=== PATIENT | male | born 1960 | race Hispanic/Latino ===

== ENCOUNTER 2016-10-10 00:34 | Emergency (ER) | payer SELFPAY ==
[2016-10-10 00:34] VITALS: BMI 28.7
[2016-10-10 00:54] VITALS: RESP 18
--- NOTE | 2016-10-10 02:49 | C.PDOC ---
History Of Present Illness 55 yo male BIBA due to head injury sustained [employer]. As per EMS, pt was found sitting outside, (+) alcohol intoxication. Pt admits, "tripped and fell, face first". Pt denies hx of alcohol abuse, " was occasion today. Pt reports pain over the face at present time. Otherwise, pt denies LOC, syncope, denies worse headache of life, neck pain, CP, SOB, dyspnea, papitation, abd. pain, V/D, back pain, denies pain/deformity/weakness toB/L UEs and LEs. At the time of evaluation, pt is AAO#3, appears in acute alcohol intoxication. - HPI Time Seen by Provider: 10/10/16 01:40 Chief Complaint (Nursing): Trauma History Per: Patient, EMS Past Medical History Reviewed: Historical Data, Nursing Documentation, Vital Signs Vital Signs: Last Vital Signs Temp 98.0 F 10/10/16 05:57 Pulse 68 10/10/16 05:57 Resp 18 10/10/16 05:57 BP 165/83 H 10/10/16 05:57 Pulse Ox 96 10/10/16 06:14 - Medical History PMH: HTN Family History: States: No Known Family Hx - Social History Hx Alcohol Use: Yes ("WEEKENDS") Hx Substance Use: No - Immunization History Hx Tetanus Toxoid Vaccination: Yes (2011) Hx Influenza Vaccination: No Hx Pneumococcal Vaccination: No Review Of Systems Except As Marked, All Systems Reviewed And Found Negative. Eyes: Negative for: Vision Change ENT: Positive for: Mouth Pain, Other (facial contusion) Cardiovascular: Negative for: Chest Pain, Palpitations, Light Headedness Respiratory: Negative for: Cough, Shortness of Breath, Wheezing Gastrointestinal: Negative for: Nausea, Vomiting, Abdominal Pain Genitourinary: Negative for: Dysuria, Frequency Musculoskeletal: Negative for: Neck Pain, Back Pain Skin: Positive for: Bruising, Other (abrasions) Neurological: Negative for: Weakness, Numbness, Altered Mental Status, Headache Physical Exam - Physical Exam Appears: Well, Non-toxic Skin: Normal Color, Warm, Dry Head: Normacephalic, Other (multiple forehead abrasion. NO defomrity. NO open wounds.) Eye(s): bilateral: Normal Inspection, PERRL (slugush reactive to light B/L), EOMI Nose: No Epistaxis, No Deformity, Tenderness (and trace ecchymoses, superficial abrasion over nasal bridge.), No Septal Hematoma Oral Mucosa: Moist, No Drooling Tongue: Normal Appearing, No Swelling, No Laceration Lips: Normal Appearing, No Swelling, No Laceration Throat: Normal, No Erythema, No Exudate, No Drooling Neck: Normal, Normal ROM, No Midline Cervical Tenderness, No Paracervical Tenderness, No Step Off Deformity, Supple Cardiovascular: Rhythm Regular Respiratory: Normal Breath Sounds Gastrointestinal/Abdominal: Normal Exam, Soft, No Tenderness, No Rebound Back: Normal Inspection Extremity: Normal ROM (FAROM of B/L UEs and LEs.), No Deformity, Other ( multiple abrasions noted B/L hands dorsal asepct) Neurological/Psych: Oriented x3, Normal Motor, Normal Sensation, Normal Reflexes ED Course And Treatment O2 Sat by Pulse Oximetry: 96 Pulse Ox Interpretation: Normal - CT Scan/US CT head Other Rad Studies (CT/US): Radiology Report Reviewed CT/US Interpretation: IMPRESSION: 1. No intracranial hemorrhage. 2. See facial bone CT report for additional details. 3. Incidental/non-acute findings are described above. Thank you for allowing us to participate in the care of your patient. Dictated and Authenticated by: Hay Chaidez MD. 10/10/2016 3: 40 AM Eastern Time ([place] & [place]) CT max/face Other Rad Studies (CT/US): Radiology Report Reviewed CT/US Interpretation: FINDINGS: Bones/joints: Chronic deformity medial wall of LEFT orbit. No acute fracture. Soft tissues: Nasal soft tissue swelling. Orbits: Unremarkable as visualized. Sinuses: Scattered mild mucosal thickening. No air-fluid levels. IMPRESSION: 1. No fracture. 2. Incidental/ non-acute findings are described above. Thank you for allowing us to participate in the care of your patient. Dictated and Authenticated by: Hay Chaidez MD. 10/10/2016 3:42 AM Eastern Time ([place] & [place]) CT C-spine Other Rad Studies (CT/US): Radiology Report Reviewed CT/US Interpretation: 1. No fracture within visualized cervical spine. 2. Incidental/non-acute findings are described above. Addendum created by Hay Chaidez MD on 10/10/2016 4:31 AM Eastern Time ([place] & [place]). Vertebrae: No acute fracture. Straightening of cervical spine. Few tiny lucent lesions within C3. vertebral body, nonspecific. Initial Report created on 10/10/2016 3:47 AM Eastern Time ([place] & [place]) Progress Note: FSBS 135 ED OBSERVATION Discharge: Yes Date of observation admission: 10/10/16 Time of observation admission: 02:53 - Observation admission statement Patient is being placed in observation because:: Head injury, facial contusion, alcohol intoxication - Goals of Observation Goals of observation are:: Diagnostics, imaging, sobriety. - Progress Note Progress Note: 10/10/16 AT 3:55, PT RESTING COMFORTABLY IN BED, NOT IN ANY APPARENT DISTRESS. AFEBRILE, HEMODYNAMICALY STABLE. NON-TOXIC. NEUROLOGICALLY INTACT. AT 04:41, NOTED PT IS AMBULATORY IN ED TO BATHROOM. AFEBRILE, HEMODYNAMICALY STABLE. AAO#3, not in any apparent distress. NEUROLOGICALLY INTACT. AT 06:14, PT IS AAO#3, AMBULATORY IN ED WITH STABLE GAIT, TOLERATE PO WLEL IN ED. NEUROLOGICALY INTACT. IMAGING RESULTS REVIEW AND DISCUSSED WITH PT. PT HAS CLINICAL FINDINGS C/W HEAD INJURY, FACIAL CONTUSION, ALCOHOL INTOXICATION. PT ADVISED OBS 48 HRS FOR ANY SIGN OF HEAD INJURY-RETURN TO ED IF ANY NEW CHANGES. PT ADVISED ON WOUND CARE. REF. TO F/U WITH PMD IN 2-3 DAYS FOR RE-EVAL. PT IS WISHING TO BE DISCHARGE NOW , STABLE FOR DISCHARGE. Disposition Counseled Patient/Family Regarding: Studies Performed, Diagnosis, Need For Followup - Disposition Referrals: Alcoholics Anonymous [Outside] [facility] [Outside] Disposition: HOME/ ROUTINE Disposition Time: 06:20 Condition: STABLE Additional Instructions: OBSERVE 48 HOURS FOR ANY SIGN OF HEAD INJURY-INTRACTABLE HEADACHE, VOMITING, LETHARGY OR ANY OTHER NEW CHANGES-RETURN TO ED IMMEDIATELY FOR RE-EVALUATION. ANTIBIOTIC CREAM TOPICALLY TO FACIAL ABRASION FOLLOW UP WITH PMD IN 2 DAYS FOR RE-EVALUATION. Instructions: Head Injury (ED), Alcohol Intoxication (ED), Abrasion (ED), Facial Contusion (ED) - Clinical Impression Clinical Impression: Head injury, Facial contusion, Alcohol intoxication
--- NOTE | 2016-10-10 03:40 | CT ---
EXAM: CT Head Without Intravenous Contrast. CLINICAL HISTORY: 55 years old, male; Pain and injury or trauma; Fall; Initial encounter; Blunt trauma (contusions or hematomas); Headache TECHNIQUE: Axial computed tomography images of the head/brain without intravenous contrast. This CT exam was performed using one or more of the following dose reduction techniques: automated exposure control, adjustment of the mA and/or kV according to patient size, and/or use of iterative reconstruction technique. Coronal and sagittal reformatted images were created and reviewed. COMPARISON: No relevant prior studies available. FINDINGS: Brain: No intracranial hemorrhage. No mass. Dilated perivascular space vs chronic lacunar infarct about LEFT basal ganglia. No edema. Ventricles: No hydrocephalus. Bones/joints: No calvarial fracture. Soft tissues: Unremarkable. Mastoid air cells: No mastoid effusion. IMPRESSION: 1. No intracranial hemorrhage. 2. See facial bone CT report for additional details. 3. Incidental/non-acute findings are described above.
--- NOTE | 2016-10-10 03:43 | CT ---
EXAM: CT Maxillofacial Without Intravenous Contrast. CLINICAL HISTORY: 55 years old, male; Pain and injury or trauma; Fall; Initial encounter; Blunt trauma (contusions or hematomas); Head/scalp and forehead and nose and maxilla; Loss of consciousness not known; Eye pain and face pain and headache and maxilla pain and nose pain; Bilateral TECHNIQUE: Axial computed tomography images of the face without intravenous contrast. This CT exam was performed using one or more of the following dose reduction techniques: automated exposure control, adjustment of the mA and/or kV according to patient size, and/or use of iterative reconstruction technique. Coronal and sagittal reformatted images were created and reviewed. COMPARISON: No relevant prior studies available. FINDINGS: Bones/joints: Chronic deformity medial wall of LEFT orbit. No acute fracture. Soft tissues: Nasal soft tissue swelling. Orbits: Unremarkable as visualized. Sinuses: Scattered mild mucosal thickening. No air-fluid levels. IMPRESSION: 1. No fracture. 2. Incidental/non-acute findings are described above.
--- NOTE | 2016-10-10 03:47 | CT ---
EXAM: CT Cervical Spine Without Intravenous Contrast. CLINICAL HISTORY: 55 years old, male; Pain and injury or trauma; Fall; Initial encounter; Blunt trauma; Neck pain TECHNIQUE: Axial computed tomography images of the cervical spine without intravenous contrast. This CT exam was performed using one or more of the following dose reduction techniques: automated exposure control, adjustment of the mA and/or kV according to patient size, and/or use of iterative reconstruction technique. Coronal and sagittal reformatted images were created and reviewed. COMPARISON: No relevant prior studies available. FINDINGS: Limitations: Incomplete imaging of C6, C7 spinous processes. Vertebrae: No acute fracture. Straightening of cervical spine. Discs/spinal canal/neural foramina: Mild degenerative disc disease within mid cervical spine. Moderate degenerative disc disease within lower cervical spine. Disc herniations within lower cervical spine, suboptimally evaluated. Moderate indentation thecal sac/cord lower cervical spine. Neural foraminal narrowing within lower cervical spine. Soft tissues: Unremarkable. Lung apices: Minimal bullous changes. IMPRESSION: 1. No fracture within visualized cervical spine. 2. Incidental/non-acute findings are described above.
[2016-10-10 05:58] VITALS: BP 165/83; PULSE 68; TEMP 98
[2016-10-10 06:14] VITALS: O2SAT 96
== END 2016-10-10 06:20 | disposition home or self-care (01) ==
LOC: C.ER 00:34
DX: S00.83XA Contusion of other part of head, initial encounter (principal); W01.0XXA Fall on same level from slipping, tripping and stumbling without subsequent striking against object, initial encounter; Y93.9 Activity, unspecified; Y92.410 Unspecified street and highway as the place of occurrence of the external cause; F10.120 Alcohol abuse with intoxication, uncomplicated; Y90.9 Presence of alcohol in blood, level not specified

== ENCOUNTER → 2016-11-19 19:09 | Emergency (ER) | payer SELFPAY ==
[2016-11-19 19:10] VITALS: BMI 28.7
== END | disposition left against medical advice (07) ==
LOC: C.ER 19:09
DX: F19.10 Other psychoactive substance abuse, uncomplicated (principal); Z02.9 Encounter for administrative examinations, unspecified

== ENCOUNTER 2017-03-04 18:29 | Observation (INO) | payer SELFPAY ==
[2017-03-04 18:30] VITALS: BMI 28.7
--- NOTE | 2017-03-04 19:47 | C.PDOC ---
History Of Present Illness Patient presents to the ED for evaluation of acute alcohol intoxication for an unknown duration. Patient admits to drinking earlier today. He denies suicidal/ homicidal ideation and has no physical complaints at this time. Time Seen by Provider: 03/04/17 19:46 Chief Complaint (Nursing): Substance Abuse History Per: Patient History/Exam Limitations: intoxication Onset/Duration Of Symptoms: Unknown Current Symptoms Are (Timing): Still Present Suicide/Self Injury Attempted (Context): None Modifying Factor(s): Alcohol Severity: Mild Pain Scale Rating Of: 3 Associated Symptoms: denies: Suicidal Thoughts, Suicidal Plan Involuntary Hold By: None Recent travel outside of the [place]: No Additional History Per: Patient Past Medical History Reviewed: Historical Data, Nursing Documentation, Vital Signs Vital Signs: Last Vital Signs Temp 97 F L 03/04/17 23:00 Pulse 90 03/04/17 23:00 Resp 14 03/04/17 23:00 BP 110/70 03/04/17 23:00 Pulse Ox 95 03/05/17 02:48 - Medical History PMH: HTN Surgical History: No Surg Hx Family History: States: Unknown Family Hx - Social History Hx Alcohol Use: Yes Hx Substance Use: No - Immunization History Hx Tetanus Toxoid Vaccination: Yes (2011) Hx Influenza Vaccination: No Hx Pneumococcal Vaccination: No Review Of Systems Constitutional: Positive for: Other (+ETOH intoxication ) Cardiovascular: Negative for: Chest Pain, Palpitations Respiratory: Negative for: Cough, Shortness of Breath Gastrointestinal: Negative for: Nausea, Vomiting, Abdominal Pain Skin: Negative for: Rash, Lesions, Jaundice, Bruising Psych: Negative for: Suicidal ideation Physical Exam - Physical Exam Appears: No Acute Distress, Other (+visibly intoxicated ) Skin: Warm, Dry Head: Normacephalic Eye(s): bilateral: Normal Inspection Oral Mucosa: Moist, Other (alcohol on breath ) Neck: Supple Chest: Symmetrical, No Deformity, No Tenderness Cardiovascular: Rhythm Regular, No Murmur Respiratory: No Rales, No Rhonchi, No Wheezing Extremity: Capillary Refill (less than 2 seconds ) Neurological/Psych: Other (arousable to touch and verbal stimuli ) Gait: Unsteady ED Course And Treatment O2 Sat by Pulse Oximetry: 95 (on RA) Pulse Ox Interpretation: Normal Progress Note: Patient placed in ED observation for acute alcohol intoxication and is pending sobriety. Reevaluation Time: 04:34 Reassessment Condition: Improved ED OBSERVATION Discharge: Yes Date of observation admission: 03/04/17 Time of observation admission: 19:49 - Observation admission statement Patient is being placed in observation because:: acute alcohol intoxication - Goals of Observation Goals of observation are:: sobriety - Progress Note Progress Note: 03/04/17 19:49 vitals stable 03/04/17 23:47 no complaints 03/05/17 02:47 vitals stable Disposition Counseled Patient/Family Regarding: Studies Performed, Diagnosis, Need For Followup - Disposition Disposition: HOME/ ROUTINE Disposition Time: 19:47 Condition: FAIR - Clinical Impression Clinical Impression: Alcohol abuse, Alcohol intoxication - Scribe Statement The provider has reviewed the documentation as recorded by the Scribe (Gabby Sainz) Provider Attestation: All medical record entries made by the Scribe were at my direction and personally dictated by me. I have reviewed the chart and agree that the record accurately reflects my personal performance of the history, physical exam, medical decision making, and the department course for this patient. I have also personally directed, reviewed, and agree with the discharge instructions and disposition.
[2017-03-05 02:24] VITALS: RESP 14
[2017-03-05 02:48] VITALS: O2SAT 95
[2017-03-05 04:41] VITALS: BP 118/74; PULSE 80; TEMP 97.2
== END 2017-03-05 04:34 | disposition home or self-care (01) ==
LOC: C.ER 18:29 → C.9OBSV 19:47
PROVIDERS: ADMIT Emergency Medicine; ATTEND Emergency Medicine
DX: F10.129 Alcohol abuse with intoxication, unspecified (principal); I10 Essential (primary) hypertension; Y90.9 Presence of alcohol in blood, level not specified